=== PATIENT | female | born 1990 | race Hispanic/Latino ===

== ENCOUNTER 2017-04-07 06:37 | Day surgery (SDC) | payer MEDICAID ==
[2017-04-05 11:44] VITALS: BP 105/69
[2017-04-05 12:20] LABS: CREATININE 0.7 mg/dL (0.5-1.5); POTASSIUM 4.2 mmol/L (3.5-5.1)
[2017-04-05 12:45] LABS: BASOPHILS % (AUTO) 0.2 % (0.0-5.0); EOSINOPHILS % (AUTO) 1.1 % (0.0-8.0); HEMATOCRIT 39.6 % (36-48); LYMPHOCYTES % (AUTO) 27.6 % (21.0-51.0); MEAN CORPUSCULAR HEMOGLOBIN 28.6 pg (27.0-33.0); MEAN CORPUSCULAR HGB CONC 33.5 g/dL (32.0-36.0); MEAN CORPUSCULAR VOLUME 85.3 fL (79-99); NEUTROPHILS % (AUTO) 66.1 % (40.0-77.0); PLATELET COUNT (AUTO) 202 K/uL (130-400); RED BLOOD CELL COUNT(AUTO) 4.64 MIL/uL (4.00-5.50); RED CELL DISTRIBUTION WIDTH 13.8 % (11.0-15.5); WHITE BLOOD COUNT (AUTO) 7.7 K/uL (4.8-10.8)
[~2017-04-07] VITALS: Ht 157.5 cm; Wt 90.8 kg
[2017-04-07] VITALS (14 sets, daily range): BP systolic 99–126; BP diastolic 45–73
[2017-04-07] MEDS ORDERED: BUPIVACAINE/PF 0.5% 30ML VIAL ONE ×3 (06:44→08:40)
[2017-04-07] MEDS ORDERED: ONDANSETRON HCL 4 MG/2 ML VIAL ONE ×2 (07:32→09:45)
[2017-04-07] MEDS ORDERED: LIDOCAINE PF 2% 5ML ABBOJECT ONE (07:32)
[2017-04-07] MEDS ORDERED: DEXAMETHASONE SOD PHOSPHATE 10MG/ML 1ML VIAL ONE (07:32)
[2017-04-07] MEDS ORDERED: SUCCINYLCHOLINE 200MG/10ML SYR ONE (07:32)
[2017-04-07] MEDS ORDERED: GLYCOPYRROLATE 0.2 MG/ML 5 ML VIAL ONE (07:32)
[2017-04-07] MEDS ORDERED: MIDAZOLAM HCL 1 MG/ML 2ML VIAL ONE ×2 (07:33→08:18)
[2017-04-07] MEDS ORDERED: PROPOFOL 10 MG/ML 20ML VIAL IV ONE (07:33)
[2017-04-07] MEDS ORDERED: FENTANYL CITRATE PF 50 MCG/1 ML 2ML VIAL ONE ×2 (07:33→09:14)
[2017-04-07] MEDS ORDERED: LACTATED RINGERS 1000ML 1,000 ML IV ONE (07:39)
[2017-04-07] MEDS ORDERED: CEFAZOLIN SODIUM 1 GM VIAL IVP ONE (08:00)
[2017-04-07] MEDS ORDERED: MEPERIDINE-PF 50 MG/ML SYG ONE ×2 (09:40→09:56)
[2017-04-07] MEDS ORDERED: METOCLOPRAMIDE 10 MG/2 ML VIAL ONE (09:45)
[2017-04-07] MEDS ORDERED: TRAM50TA4 PO (11:14)
== END 2017-04-07 11:34 | disposition home or self-care (01) ==
LOC: DAH 06:37
PROVIDERS: ATTEND Student in an Organized Health Care Education/Training Program
DX: K80.10 Calculus of gallbladder with chronic cholecystitis without obstruction (principal)
CPT/HCPCS: 36415; 47562; 80048; 84703; 85025; 88304; A4218; A4649 ×4; A4930; A6206; A6207; C1769 ×3; J0330; J0690; J1100; J2001; J2175 ×2; J2250 ×2; J2405 ×2; J2704; J2765; J3010 ×2; J3490 ×4; J7030; J7120